=== PATIENT | female | born 2000 | race Caucasian/White ===

== ENCOUNTER 2018-05-13 08:26 | Outpatient (CLI) | payer OTHER ==
--- NOTE | 2018-05-13 10:39 | CT ---
CT ABDOMEN AND PELVIS WITH AND WITHOUT IV CONTRAST: History: Hematuria. Cystitis. Dysuria. FINDINGS: Each renal collecting system, ureter, and urinary bladder are decompressed without stone evident. No filling defects are apparent within the urinary system on the delayed images. Lung bases are clear. Solid organs are intact. Retroaortic left renal vein. No evidence of bowel obstruction. Dominant follicle right ovary. Anterior to the uterine fundus and just superior to the urinary bladder dome a loop of bowel contains gas and liquid. The base of this bowel loop extends superiorly to a prominent collection of mesenter ic fat and vessels having the appearance of a hernia pedicle. The involves bowel loop is not inflamed . Bowel wall remains thin. No free fluid or free air. IMPRESSION: No primary urinary tract abnormalities are demonstrated to explain patient's symptoms. There is an ap parent internal supra vesicle hernia (into the space of Retzius). The involves bowel loop is not infl cierra. No evidence of obstruction. This may explain the patient's dysuria. POS: LIZ
== END 2018-05-13 08:27 | disposition home or self-care (01) ==
LOC: CT 08:26
PROVIDERS: ATTEND Urology
DX: N30.10 Interstitial cystitis (chronic) without hematuria (principal); R10.2 Pelvic and perineal pain; R39.15 Urgency of urination; Z87.448 Personal history of other diseases of urinary system
CPT/HCPCS: 74178

== ENCOUNTER 2018-05-14 10:01 | Outpatient (CLI) | payer OTHER ==
[2018-05-14 11:34] LABS: #Basophils 0.1 thou/uL (0.0-0.2); #Eosinphils 0.7 thou/uL (0.0-0.7); #Lymphocytes 2.3 thou/uL (1.20-3.40); #Monocytes 0.4 thou/uL (0.11-0.59); #Neutrophils 3.8 thou/uL (1.40-6.50); %Basophils 0.8 % (0.0-1.0); %Eosinophils 9.5 % (0.0-10.0); %Lymphocytes 32.1 % (28.0-48.0); %Monocytes 5.4 % (0.0-4.0); %Neutrophils 52.2 % (31.0-61.0); Hemoglobin 12.8 g/dL (12.0-16.0); Mean Corpuscular HGB CONC 33.1 g/dL (32.0-36.0); Mean Corpuscular Hemoglobin 28.6 pg (25.0-35.0); Mean Corpuscular Volume 86.4 fL (78.0-98.0); Mean Platelet Volume 7.5 fL (7.4-10.4); Platelet Count 269 thou/uL (130-400); RBC Distribution Width 12.3 % (11.5-14.5); Red Blood Cell (RBC) Count 4.48 mill/uL (4.00-5.20); White Blood Cell (WBC) Count 7.2 thou/uL (4.8-10.8)
[2018-05-14 12:00] LABS: Anion Gap 12 mmol/L (10-20); BUN (Urea Nitrogen) 9 mg/dL (7.0-18.7); Calc. Creatinine Clearance 0 mL/min (70-130); Calcium 9.1 mg/dL (7.8-10.44); Carbon Dioxide 23 mmol/L (22-29); Chloride 105 mmol/L (98-107); Estimated GFR-MDRD Greater than 90; Glucose 77 mg/dL (70-105); Potassium 3.6 mmol/L (3.5-5.1); Sodium 136 mmol/L (136-145)
== END 2018-05-14 10:02 | disposition home or self-care (01) ==
LOC: LABBT 10:01
PROVIDERS: ATTEND Surgery
DX: Z01.812 Encounter for preprocedural laboratory examination (principal); K46.9 Unspecified abdominal hernia without obstruction or gangrene
CPT/HCPCS: 80048; 85025

== ENCOUNTER 2018-05-21 09:56 | Day surgery (SDC) | payer OTHER ==
[2018-05-14 10:35] VITALS: BMI 17.8
[2018-05-21 11:02] LABS: Prothrombin Time 13.1 SEC (12.0-14.7)
[2018-05-21 11:03] LABS: PTT 31.1 SEC (22.9-36.1)
[2018-05-21] MEDS ORDERED: Midazolam HCl 2 mg/2 ml Vial ONE ×2 (11:05→11:22)
[2018-05-21] MEDS ORDERED: CEFAZOLIN/Water 2 GM/20 ML SYRINGE ONE (11:05)
[2018-05-21] MEDS ORDERED: Levofloxacin 500 mg/D5W 100 ml Premix Bag ONE (11:05)
[2018-05-21] MEDS ORDERED: Fentanyl 100 MCG/2 ML VIAL ONE ×3 (11:22→14:37)
[2018-05-21] MEDS ORDERED: Bupivacaine/Epinephrine 0.25% 30 ML VIAL ONE (11:37)
[2018-05-21] MEDS ORDERED: PROPOFOL 200 MG/20 ML VIAL ONE (14:21)
[2018-05-21] MEDS ORDERED: Lidocaine 1% PF 5 ML VIAL ONE (14:21)
[2018-05-21] MEDS ORDERED: Glycopyrrolate 0.2 MG/ML 5 ML SYRINGE ONE (14:21)
[2018-05-21] MEDS ORDERED: Dexamethasone 20 MG/5 ML VIAL ONE (14:21)
[2018-05-21] MEDS ORDERED: Ondansetron HCl/PF 4 MG/2 ML Vial ONE (14:21)
[2018-05-21] MEDS ORDERED: Ketorolac Tromethamine 30 MG/ML VIAL ONE (14:21)
--- NOTE | 2018-05-21 14:26 | OP ---
DATE OF PROCEDURE: 05/21/2018 PREOPERATIVE DIAGNOSES: 1. A 18-year-old female with chronic pelvic pain, history of vague blood tinged hematuria. 2. CT demonstrating supravesical hernia. POSTOPERATIVE DIAGNOSES: 1. A 18-year-old female with chronic pelvic pain, history of vague blood tinged hematuria. 2. CT demonstrating supravesical hernia. PROCEDURE: Cystoscopy, bladder wash. SURGEON: Dr. Alcantara. ANESTHESIA: General. COMPLICATIONS: None apparent. DISPOSITION: To recovery room in stable condition. SPECIMEN: Bladder wash for urine cytology. INDICATIONS FOR THE PROCEDURE AND HISTORY: Radha is a 18-year-old female who was referred to me by Gynecology to rule out possible interstitial cystitis. She related chronic pelvic pain which was vag ue in nature. She also related hematuria intermittent. Cystoscopy was advised with CT for hematuria workup and chronic pelvic pain. This demonstrated on CT, a supravesical hernia into the space of Re tzius. She was referred to General Surgery and presents today for cystoscopy, hernia repair. DESCRIPTION OF PROCEDURE: The patient taken to the operating room, placed in a dorsal lithotomy posi tion. The patient will proceed with robotic-assisted laparoscopic hernia repair by Dr. Ng. Ashley or to hernia repair, patient was formally draped in the usual surgical sterile fashion in the genital region and a cystoscopy was performed. Bladder was entered without difficulty. There was no eviden ce of bladder lesion, tumors, diverticulum stones. Bilateral clear efflux of urine was noted. There was no evidence of hyperemia of the bladder concerning. She tolerated the procedure well. Caballero ca theter was placed and she will undergo robotic assisted hernia repair per General Surgery. She will follow up with me in a few weeks.
[2018-05-21] MEDS ORDERED: Promethazine HCl 25 MG/ML VIAL ONE (14:37)
--- NOTE | 2018-05-22 10:58 | OP ---
DATE OF PROCEDURE: PREOPERATIVE DIAGNOSIS: Supravesical hernia. POSTOPERATIVE DIAGNOSES: Supravesical hernia plus small bowel diverticulum. PROCEDURE PERFORMED: Da Tariq laparoscopic left inguinal hernia repair with mesh. SURGEON: Chaparro Ng M.D. ANESTHESIA: General. ESTIMATED BLOOD LOSS: Minimal. COMPLICATIONS: None. FINDINGS: There is preperitoneal fat in the left supravesical hernia. There is likely Meckel's dive rticulum within the first few feet of the terminal ileum without obvious inflammation. TECHNIQUE: The patient was taken to the operating room and placed supine on the table. After genera l anesthetic was obtained, Dr. Alcantara performed cystoscopy and Caballero placement. Her abdomen is prepped and draped in a sterile fashion. Curved incision was made above the umbilicus. Cautery was used to dissect down to and score the fascia. Abdominal cavity was entered using a 12 mm balloon and applied medical trocar. The balloon is inflated and high-flow pneumoperitoneum was obtained. Left and right abdominal robot 8 mm trocars are placed. All ports were docked to the robot. The patient had been placed in Trendelenburg position. The peritoneum was opened in the left lower quadrant into the preperitoneal space. The space of Retzius is then dissected more medial carefully avoiding inju ry to the bladder. There was peritoneum and a small amount of preperitoneal fat anterior to the blad eddie in this space; however, no large fascial defect. There was a small indirect inguinal hernia that was dissected back and free. Round ligament was cauterized and from the small indirect he rnia. A large Bard 3DMax mesh brought into the sterile field, placed in the abdominal cavity. The e nd-labeled medial aspect is placed more medial than usual to cover the left space of Retzius in the a javi of the previous hernia. A 2-0 Vicryl was used to sew the mesh to the pubic tubercle and to the p osterior fascia lateral to the inferior epigastrics. The peritoneum is reapproximated using running 3-0 Stratafix. Small bowel was then visualized. There was a small bowel diverticulum that was not i nflamed within 2 feet of the ileocecal valve. All port sites were infiltrated using local anesthetic . All ports were removed under camera visualization and pneumoperitoneum was let down. PDS was used to close the fascial defect above the umbilicus. All incisions were irrigated and closed using 4-0 Monocryl. The patient is en route to recovery in stable condition. All instrument counts, needle co unts, lap counts were correct.
== END 2018-05-21 16:40 | disposition home or self-care (01) ==
LOC: SDC 09:56
PROVIDERS: ATTEND Surgery
PROC: 0YU64JZ Supplement Left Inguinal Region with Synthetic Substitute, Percutaneous Endoscopic Approach (ICD-10-PCS; principal; 2018-05-21)
PROC: 0TJB8ZZ Inspection of Bladder, Via Natural or Artificial Opening Endoscopic (ICD-10-PCS; 2018-05-21)
DX: K40.90 Unilateral inguinal hernia, without obstruction or gangrene, not specified as recurrent (principal); R39.15 Urgency of urination; R30.0 Dysuria; Z87.448 Personal history of other diseases of urinary system; Z79.899 Other long term (current) drug therapy
CPT/HCPCS: 36415; 85610; 85730; 88112; 96374; 96375; C1781; J1100; J1885; J1956; J2001; J2250; J2405; J2550; J2704; J3010